=== PATIENT | male | born 1960 | race Caucasian/White ===

== ENCOUNTER 2019-12-15 18:02 | Inpatient (IN) | payer SELFPAY ==
[~2019-12-15] VITALS: Ht 177.8 cm; Wt 90.7 kg
[2019-12-15 18:03] VITALS: Ht 177.8 cm; Wt 90.7 kg
--- NOTE | 2019-12-15 18:11 | NUR ---
DR HORVATH AT BEDSIDE FOR MSE.
--- NOTE | 2019-12-15 18:19 | NUR ---
REC'D A 59/F IN RM 14 BIBA WITH C/O BODYACHE X 5 DAYS. 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 PT REPORTS INTERMITTENT FEVER. PT DENIES SICK CONTACT, SOB, OR LOSS SENSE OF TASTE OR SMELL. 91% ON RA WITH FEVER NOTED. PT PLACED ON 2L O2. HX OF DM. PT ARRIVED TO ED WITH MASK ON. PT AAOX4, CLEAR SPEECH, RESP EU, IN NO ACUTE DISTRESS.
[2019-12-15 18:37] LABS: BASOPHIL % 0.4 % (0-2); PLATELET COUNT 162 x10^3mcL (130-400); RED CELL DISTRIBUTION WIDTH 13.4 % (11.5-14.5)
[2019-12-15 18:43] LABS: CALCIUM 8.2 mg/dL (8.5-10.1); CARBON DIOXIDE 27.6 mmol/L (21-32); CHLORIDE SERUM 95 mmol/L (98-107); CREATININE SERUM 0.9 mg/dL (0.7-1.3); GFR1 > 60 mL/min; GLUCOSE SERUM 228 mg/dL (74-106); SODIUM SERUM 130 mmol/L (136-145)
[2019-12-15 18:48] LABS: ALBUMIN 3.3 g/dL (3.4-5.0); ALKALINE PHOSPHATASE 108 U/L (46-116); ALT/SGPT 54 U/L (16-63); AST/SGOT 69 U/L (15-37); BILIRUBIN TOTAL 0.7 mg/dL (0.20-1.00); LACTIC DEHYDROGENASE (LDH) 443 U/L (100-190); TOTAL PROTEIN, SERUM 7.4 g/dL (6.4-8.2)
[2019-12-15 18:49] LABS: C REACTIVE PROTEIN 16.5 mg/dL (<=0.9)
[2019-12-15 21:06] LABS: CHOLESTEROL/HDL RATIO 3.5
[2019-12-15 21:13] LABS: FREE T4 1.39 ng/dL (0.76-1.46); FREE THYROXINE INDEX 3.3 ug/dL (1.4-4.5); T4(THYROXINE) 9.7 ug/dL (4.7-13.3)
[2019-12-15 21:16] LABS: T3 TOTAL 0.89 ng/mL
--- NOTE | 2019-12-15 21:42 | NUR ---
REPORT TO FLOOR RN, NO ACUTE CHANGES, PT STABLE
--- NOTE | 2019-12-15 21:59 | NUR ---
TO ROOM 220B, NO DISTRES, SKIN WARM DRY, DENIES CP.
--- NOTE | 2019-12-15 22:00 | NUR ---
RECEIVED PT FROM ED VIA [facility]ER[facility], CAME IN DUE TO SOB AND FEVER X5 DAYS. AAOX4. C/O 06/23 HEADACHE. NO SOB NOTED, W/ EVEN AND UNLABORED BREATHING. O2 SAT=98% ON 2LPM/NC. DENIES CHEST PAIN/PRESSURE, SR ON THE MONITOR. DENIES ABDOMINAL DISCOMFORT. ABDOMEN IS SOFT. BOWEL SOUNDS ACTIVE. VOIDS. IV SITE PATENT AND INTACT. RECEIVED PT FROM ED W/ ZITHROMAX ONGOING. SIDE RAILS UPX2. CALL LIGHT ON REACH. HOB ELEVATED AT 30 DEG. ENDORSED TO PRIMARY NURSE JUMANA FOR CONTINUITY OF CARE
[2019-12-15 22:17] VITALS: BP 119/58
[2019-12-15 22:21] VITALS: BP 119/65
--- NOTE | 2019-12-16 01:30 | NUR ---
PT RESTING IN BED, EASILY AROUSABLE. NO ACUTE DISTRESS NOTED, BREATHING EVEN AND UNLABORED. DENIES ANY CP/PRESSURE AT THIS TIME, SPO2 96 ON CONTINUOUS MONITOR. ALL SAFETY PRECAUTIONS IN PLACE.
[2019-12-16 06:27] VITALS: BP 124/69
[2019-12-16 06:28] LABS: BASOPHIL % 0.4 % (0-2); PLATELET COUNT 159 x10^3mcL (130-400); RED CELL DISTRIBUTION WIDTH 13.3 % (11.5-14.5)
[2019-12-16 06:50] LABS: CALCIUM 8.4 mg/dL (8.5-10.1); CARBON DIOXIDE 28.9 mmol/L (21-32); CHLORIDE SERUM 100 mmol/L (98-107); CREATININE SERUM 0.8 mg/dL (0.7-1.3); GFR1 > 60 mL/min; GLUCOSE SERUM 178 mg/dL (74-106); SODIUM SERUM 135 mmol/L (136-145)
[2019-12-16 06:57] LABS: C REACTIVE PROTEIN 13.9 mg/dL (<=0.9)
--- NOTE | 2019-12-16 07:40 | NUR ---
RECEIVED PT IN NO ACUTE DISTRESS. SLEEPING BUT AROUSABLE. RESP EVEN AND UNLABORED ON 2L NC. NO SOB AT THIS TIME. NSR ON TELE MONITOR. NO C/O CP OR PRESSURE. IV WITH NO REDNESS OR SWELLING. DROPLET/CONTACT ISOLATION. BED IN LOW POSITION, CALL LIGHT WITHIN REACH. WILL CONTINUE TO MONITOR.
[2019-12-16 08:18] VITALS: BP 117/62
[2019-12-16 10:20] LABS: ERYTHROCYTE SED RATE 60 mm/hr (0-20)
[2019-12-16 11:25] VITALS: BP 116/63
[2019-12-16 12:43] LABS: UA SPECIFIC GRAVITY 1.015 (1.005-1.035); microscopic required? YES; urine erythrocyte NEGATIVE (NEGATIVE)
--- NOTE | 2019-12-16 12:45 | NUR ---
PT IN NO ACUTE DISTRESS. RESTING IN BED. STATED HIS HEADACHE IS GETTING BETTER, DOES NOT WANT PAIN MEDICATION AT THIS TIME. RESP EVEN AND UNLABORED ON 2L NC, O2 SAT 98%. IV WITH NO REDNESS OR SWELLING. URINALYSIS SAMPLE COLLECTED AND SENT TO LAB. CALL LIGHT WITHIN REACH. WILL CONTINUE TO MONITOR.
[2019-12-16 17:15] VITALS: BP 115/73
--- NOTE | 2019-12-16 18:23 | NUR ---
PT IN NO ACUTE DISTRESS. RESTING IN BED. NO ACUTE DISTRESS. AAOX4. RESP EVEN AND UNLABORED ON 2L NC. C/O MILD HEADACHE, TOLERABLE. IV WITH NO REDNESS OR SWELLING. DROPLET/CONTACT ISOLATION. BED IN LOW POSITION, CALL LIGHT WITHIN REACH. WILL ENDORSE TO ONCOMING SHIFT.
--- NOTE | 2019-12-16 19:30 | NUR ---
PT. REPORT RECIEVED FROM DAY SHIFT NURSE, PT. RESTING IN BED W/ EYES CLOSED, NO FACIAL DROOP NOTED, RR EVEN AND UNLABORED ON 2L NC, CHEST RISE SYMT, TELE 10 NSR. IV R HAND INTACT AND WNL. BED IN LOWEST POSITION, CALL LIGHT WITHIN REACH, SR UPX2, WILL CONT TO MONITOR.
[2019-12-16 20:40] VITALS: BP 114/68
--- NOTE | 2019-12-16 21:35 | NUR ---
PT. WAS GIVEN SCHEDULE DOSE OF LANTUS AND HUMILIN [place] EMAR, EDUCATED PT. ON S/S OF HYPOGLYEMIA AND TO USE TO CALL LIGHT TO LET ME KNOWN IF HE IS HAVING ANY SYMPTOMS, PROVIDED PT. WITH APPLE JUICE BEFORE HE WENT TO SLEEP. WILL CONT TO MONITOR.
--- NOTE | 2019-12-17 03:10 | NUR ---
PT. RESTING IN BED W/ EYES CLOSED, NO FACIAL DROOP NOTED, RR EVEN AND UNLABORED ON 2L NC SATTING AT 96%, CHEST RISE SYMT, TELE 10 NSR, NO SIGN OF ACUTE DISTRESS/CHANGE NOTED. BED IN LOWEST POSITON, CALL LIGHT WITHIN REACH, WILL CONT TO MONITOR.
[2019-12-17 05:35] VITALS: BP 98/59
[2019-12-17 07:01] LABS: BASOPHIL % 0.2 % (0-2); PLATELET COUNT 204 x10^3mcL (130-400); RED CELL DISTRIBUTION WIDTH 13.6 % (11.5-14.5)
--- NOTE | 2019-12-17 07:01 | NUR ---
PT RESTING IN BED, EASILY AROUSABLE, A&OX4, NO FACIAL DROOP NOTED, SPEECH CLEAR, RR EVEN AND UNLABORED ON 2LNC, CHEST RISE SYMT, TELE 10 NSR, R HAND IV WNL, CALL LIGHT WITHIN REACH, BED IN LOWEST POSITION, WILL ENDORSE TO UPCOMMING NURSE.
[2019-12-17 07:35] LABS: CALCIUM 8.6 mg/dL (8.5-10.1); CARBON DIOXIDE 28.8 mmol/L (21-32); CHLORIDE SERUM 103 mmol/L (98-107); CREATININE SERUM 0.9 mg/dL (0.7-1.3); GFR1 > 60 mL/min; GLUCOSE SERUM 219 mg/dL (74-106); MAGNESIUM 2.4 mg/dL (1.8-2.4); PHOSPHOROUS 3.9 mg/dL (2.5-4.9); POTASSIUM SERUM 4.1 mmol/L (3.5-5.1); SODIUM SERUM 139 mmol/L (136-145)
[2019-12-17 08:35] VITALS: BP 98/57
--- NOTE | 2019-12-17 09:50 | NUR ---
PATIENT IS A 59 YEAR OLD MALE ADMITTED TO [place] FOR BODY ACHES AND FEVER FOR 2 DAYS. ADMITTING DX HYPOXIA AND COVID +. 12/14 NOVEL PCR PENDING AND MADELAINE IS POSITIVE. ALERT AND ORIENTED X 4, PATIENT ON TELE 10 NSR RECENT D DIMER 807. RH20G FOR DECADRON INTACT AND PATENT. PATIENT HAS BILATERAL DIMINISHED LUNG SOUNDS ON 2LNC
[2019-12-17 11:57] VITALS: BP 101/60
--- NOTE | 2019-12-17 13:55 | NUR ---
LABRATORY CALLED THIS AM: PCR COVID CAME BACK POSITIVE, MADELAINE ALREADY POSITIVE. MD'S AWARE.
--- NOTE | 2019-12-17 15:00 | NUR ---
DISCOUNT PHARMACY CARD AND LIST TO [facility] GIVEN TO SCOTT CHENG AND SHE WILL HAND IT TO PATIENT.
[2019-12-17 16:27] VITALS: BP 101/54
--- NOTE | 2019-12-17 17:57 | NUR ---
DC ORDER PLACED BY MD TO DC HOME TOMORROW: 12/17 0800, WILL ENDORSE TO NOC SHIFT TO PREPARE, WILL BE BACK IN AM TO FACILITATE THE DC HOME. NO S/S OF DISTRESS THROUGHOUT MY SHIFT. BSL TRENDING HIGH BUT MDS ARE AWARE COVERAGE GIVEN EACH BS CHECK.
--- NOTE | 2019-12-17 19:30 | NUR ---
RECEIVED PT FROM AM NURSE, AA/O X 4, ABLE TO MAKE NEEDS KNOWN. DENIES HEADACHE/ DIZZINESS. TELE MONITOR #10, NSR, HR 67 BPM. DENIES CHEST PAIN/ CHEST PRESSURE. PULSES PALPABLE, NO EDEMA. RESPIRATIONS E/U ON ROOM AIR, RISE AND FALL OF CHEST SYMMETRICAL. NO RESPIRATORY DISTRESS. ACTIVE BS X 4 QUADS, ABD SOFT AND NON-DISTENDED, DENIES N/V/D. VOIDS FREELY. GENERALIZED BODY ACHES, REFUSES PAIN MEDICATION AT THIS TIME. SKIN INTACT. IV TO RH INTACT, NO INFILTRATION, WNL. DROPLET/ CONTACT PRECAUTIONS IN PLACE FOR POSITIVE COVID 19 STATUS. ALL CONCERNS ADDRESSED. CALL BUTTON WITHIN REACH, WILL CONTINUE TO MONITOR.
[2019-12-17 20:04] VITALS: BP 98/59
--- NOTE | 2019-12-17 21:45 | NUR ---
DR. FLORES UPDATED ON PATIENT CONDITION. DR. FLORES STATED HE RECOMMENDED 1 UNIT OF CONVALESCENT PLASMA ORDERED. MD RESIDENT DR. NANCE MADE AWARE.
--- NOTE | 2019-12-17 22:04 | NUR ---
RETURNED A PHONE CALL TO PT'S DAUGHTER. UPDATED HER ON PT'S CONDITION. ALL CONCERNS ADDRESSED. WILL PROVIDE DAUGHTER ENRIQUE'S PHONE NUMBER TO PT PER REQUEST, PT DAUGHTER STATED PT'S PHONE AND HE DOES NOT KNOW HER PHONE NUMBER MEMORIZED. [phone].
--- NOTE | 2019-12-18 00:10 | NUR ---
PT IN BED RESTING WITH EYES CLOSED, BUT EASILY AROUSABLE. RESPIRATIONS E/U ON ROOM AIR, SPO2 94%. RISE AND FALL OF CHEST OBSERVED AND SYMMETRICAL. TELE MONITOR #[address], NSR, HR 63 BPM. NO ACUTE DISTRESS AT THIS TIME. CALL BUTTON WITHIN REACH. WILL CONTINUE TO MONITOR.
[2019-12-18 05:41] VITALS: BP 97/60
[2019-12-18 06:47] LABS: BASOPHIL % 0.2 % (0-2); PLATELET COUNT 229 x10^3mcL (130-400); RED CELL DISTRIBUTION WIDTH 13.5 % (11.5-14.5)
--- NOTE | 2019-12-18 06:57 | NUR ---
PT SLEPT IN INTERVALS THROUGHOUT THE NIGHT, BUT EASILY AROUSABLE. RESPIRATIONS E/U ON ROOM AIR. MORNING BLOOD SUGAR 124, NO INSULIN COVERAGE PER SLIDING SCALE. PT COMPLAINED OF PAIN, PRN NORCO GIVEN PER EMAR. WATER, NO ICE, PROVIDED PER PT'S REQUEST. NO ACUTE CHANGES OVERNIGHT. CALL BUTTON WITHIN REACH, WILL ENDORSE CARE TO AM NURSE.
[2019-12-18 07:03] LABS: CALCIUM 8.5 mg/dL (8.5-10.1); CARBON DIOXIDE 28.5 mmol/L (21-32); CHLORIDE SERUM 104 mmol/L (98-107); CREATININE SERUM 0.8 mg/dL (0.7-1.3); GFR1 > 60 mL/min; GLUCOSE SERUM 116 mg/dL (74-106); PHOSPHOROUS 4.1 mg/dL (2.5-4.9); POTASSIUM SERUM 3.8 mmol/L (3.5-5.1); SODIUM SERUM 140 mmol/L (136-145)
--- NOTE | 2019-12-18 08:11 | NUR ---
PATIENT IS A 59 YEAR OLD MALE THAT WAS ADMITTED TO [place] FOR HYPOXIA AND MADELAINE COVID (+) ON 12/14 PCR NOVEL CAME BACK (+) YESTERDAY 12/16. ORDER PLACED YESTERDAY TO DC INFORMED [facility] SHIFT NURSE, FOLLOWED UP WITH ID DR FLORES WHEN HE ROUNDED, HE WANTS TO ORDER ONE UNIT OF FFP, RESIDENT DID NOT PLACE ORDER. PER NOC SHIFT MD SAID PATIENT REFUSED. THIS AM DR MURILLO PLACED ORDER FOR ONE UNIT OF FFP AND CONSENT NEEDING TO BE OBTAINED. ID DC ROCPEHIN AND AZITHROMICIN IV THIS AM. DEXAMETHASONE DOSE WILL BE GIVEN THIS AM. WILL OBTAIN CONSENT AND PREPARE PATIENT FOR FFP. THIS AM PATIENT IS ALERT AND ORIENTED ABLE TO VERALIZE NEEDS. SOME PAIN NOTED NO PAIN MEDICATION REQUESTED PER NOC LAST DOSE OF NORCO WAS 0614.
[2019-12-18 08:45] VITALS: BP 97/57
--- NOTE | 2019-12-18 10:09 | NUR ---
CONSENT FOR CONVALESANT PLASMA WAS OBTAINED, NEEDS PHYSICAN SIGNATURE PENDING THAT PLASMA IS BEING PREPARED AT THIS TIME BY BLOOD BANK. TALKED TO PATIENT THIS AM AROUND 0745. WHEN I WENT TO GET CONSENT I ALSO PROVIDED EDUCATION ON PLASMA AND PAPERWORK PATIENT CAN READ AND ASK QUESTIONS.
[2019-12-18 11:56] VITALS: BP 100/57
--- NOTE | 2019-12-18 14:38 | NUR ---
CONVALESANT PLASMA RECIEVED FROM THE LAB AND STARTED AT 1405 VERIFIED WITH ANOTHER RN. RUNNING AT THIS TIME. CHECKED PRE AND 15MIN VS ARE WITHIN NORMAL LIMITS NO REACTION SYMPTOMS NOTED. WILL CONTINUE TO MONITOR.
--- NOTE | 2019-12-18 14:40 | NUR ---
PER DISCHARGE FIRE CREW SPECIALIST: PATIENT NEEDS TO BE PROVIDED A PERSCRIPTION FOR A GLUCOMETER/LANCETS/STRIPS ON DISHCARGE. WILL ENDORSE TO NOC AND PUT ON ENDORSEMENT PAPER. ALSO PATIENT IS AWARE HE NEEDS THIS WHEN HE DISCHARGES TO MONITOR HIS BSL MORE CLOSELY.
--- NOTE | 2019-12-18 15:22 | NUR ---
PLASMA IS DONE NO REACTION NOTED. PAPER IN CHART. WILL CONTINUE TO MONITOR PATIENT.
[2019-12-18 16:22] VITALS: BP 95/59
--- NOTE | 2019-12-18 17:24 | NUR ---
PAIN NOTED AT 1715, PATIENT REQUESTING NORCO FOR PAIN 10/10 S/P PLASMA INFUSION. PATIENT GIVEN NORCO. NO S/S OF DISTRESS NOTED.
--- NOTE | 2019-12-18 17:31 | NUR ---
DR CASH CALLED AND PLACED ORDER FOR SEROQUEL 25MG BID TO START TONIGHT AT 2100 TO ATTEMPT TO DC RESTRAINTS FOR AGITATION AND RESTLESSNESS. WILL ENDORSE TO NOC SHIFT ABOUT FIRST DOSE.
--- NOTE | 2019-12-18 19:30 | NUR ---
RECEIVED PT AWAKE/ALERT, GC 15. NO DISTRESS NOTED IN RA WITH SPO2 >95%. NSR ON TELE AND DENIES ANY PAIN/DISCOMFORT. SAFETY MEASURES IN PLACE AND CALL LIGHT WITHIN REACH. WILL CONTINUE TO MONITOR THE PT.
[2019-12-18 20:30] VITALS: BP 101/63
[2019-12-19 05:30] VITALS: BP 106/65
--- NOTE | 2019-12-19 06:29 | NUR ---
PT IS AWAKE/ALERT, GCS 15, NO DISTRESS NOTED IN RA AND NSR ON TELE. NO C/O PAIN/DISCOMFORT AND ALL VS WDL. SKIN INTACT AND IV PATENT. PT AMBULATORY WITH STEADY GAIT. NO ACUTE EVENTS OVERNIGHT. SAFETY MEASURES IN PLACE AND CALL LIGHT WITHIN REACH. ALL NEEDS WERE MET.
[2019-12-19 06:30] LABS: BASOPHIL % 0.4 % (0-2); PLATELET COUNT 253 x10^3mcL (130-400); RED CELL DISTRIBUTION WIDTH 13.6 % (11.5-14.5)
[2019-12-19 06:56] LABS: CALCIUM 8.8 mg/dL (8.5-10.1); CARBON DIOXIDE 31.6 mmol/L (21-32); CHLORIDE SERUM 106 mmol/L (98-107); CREATININE SERUM 0.8 mg/dL (0.7-1.3); GFR1 > 60 mL/min; GLUCOSE SERUM 131 mg/dL (74-106); PHOSPHOROUS 4.4 mg/dL (2.5-4.9); POTASSIUM SERUM 4.5 mmol/L (3.5-5.1); SODIUM SERUM 143 mmol/L (136-145)
--- NOTE | 2019-12-19 07:20 | NUR ---
PT IS AA0x4. TELE [address] READING NSR. RESP EVEN AND UNLABORED. LUNG SOUNDS DIMINISHED BILATERAL BASES. NO COUGH OR SOB NOTED. IV CATH TO RH, FLUSHED AND PATENT. S/L. PT DENIES PAIN. CALL LIGHT WITHIN REACH.
[2019-12-19 08:14] VITALS: BP 99/51
[2019-12-19] MEDS ORDERED: VENTOLIN H0.09 MG/A1 INH (09:58)
[2019-12-19] MEDS ORDERED: GLUCOPHAGE500 MG PO (09:59)
[2019-12-19] MEDS ORDERED: ACCU-CHEK1 EAC2 MC (10:00)
[2019-12-19] MEDS ORDERED: DECADRON4 MG PO (10:01)
--- NOTE | 2019-12-19 10:41 | NUR ---
TYLENOL PO GIVEN FOR BACK PAIN 04/23. EXTRA FLUIDS GIVEN AND TOLERATED WELL. NO RESP DISTRESS NOTED. CALL LIGHT WITHIN REACH.
[2019-12-19 10:42] VITALS: BP 99/51
--- NOTE | 2019-12-19 11:35 | NUR ---
SPOKE WITH PREMA IN CASE MANAGEMENT REGARDING PT'S TAXI VOUCHER. PREMA STATED THE PT SAID HE CAN TAKE AN UBER TO HIS CAR IN [place].
--- NOTE | 2019-12-19 12:04 | NUR ---
15 UNITS REG INSULIN SQ GIVEN TO LLA. SITE WNL. DENIES PAIN. NO RESP DISTRESS NOTED. PT STATED HIS PHONE IS NOT CHARGED AND HE HAS NO WAY TO USE AN Rising MARCE. PREMA IN CASE MANAGEMENT MADE AWARE. PREMA STATED THAT THE SHE WILL TRY TO GET A TAXI VOUCHER FOR THE PT. PT MADE AWARE.
--- NOTE | 2019-12-19 13:06 | NUR ---
PT DISCHARGED IN NO DISTRESS. DISCHARGE INSTRUCTIONS REVIEWED. ALL QUESTIONS AND CONCERNS ADDRESSED. PT EDUCATED ON APPT SCHEDULED, AND THAT A PRESCRIPTION FOR MEDICATIONS HAS BEEN SENT ELECTRONICALLY TO THE PT'S INDICATED PHARMACY. PT VERBALIZED UNDERSTANDING. IV CATH TO LFA REMOVED INTACT. SITE WNL. COVERED WITH [employer]I DRESSING. TELE #18 RETURNED TO PATCHER. PT DENIES PAIN AT DISCHARGE. PT TAKEN TO LOBBY IN W/C BY [place]. PT HAD TAXI VOUCHER PROVIDED TO HIM MY [facility] [employer]PER[employer] OFFICER PREMA. ALL PERSONAL BELONGINGS TAKEN WITH PT.
== END 2019-12-19 13:02 | disposition home or self-care (01) | DRG 871 ==
LOC: ED 18:02 → DU 20:26 → EDBEDREQ 20:26 → DU 22:04
PROVIDERS: Emergency Medicine; Internal Medicine; ADMIT Student in an Organized Health Care Education/Training Program; ATTEND Student in an Organized Health Care Education/Training Program
PROC: XW13325 Transfusion of Convalescent Plasma (Nonautologous) into Peripheral Vein, Percutaneous Approach, New Technology Group 5 (ICD-10-PCS; principal; 2019-12-18)
DX: A41.9 Sepsis, unspecified organism (principal); U07.1 COVID-19; J96.01 Acute respiratory failure with hypoxia; J12.89 Other viral pneumonia; D68.59 Other primary thrombophilia; E87.1 Hypo-osmolality and hyponatremia; E44.1 Mild protein-calorie malnutrition; E11.65 Type 2 diabetes mellitus with hyperglycemia; Z79.899 Other long term (current) drug therapy; Z79.01 Long term (current) use of anticoagulants; Z79.84 Long term (current) use of oral hypoglycemic drugs; Z68.30 Body mass index [BMI] 30.0-30.9, adult
CPT/HCPCS: 36600; 82962; 84439; 85378; 87804; G0378; J0456; J0696; J1100; J1644; J1815; J3535; J7050; J7060; Q0092; U0003